=== PATIENT | female | born 1980 | race Caucasian/White ===

== ENCOUNTER → 2016-07-25 | Outpatient (CLI) | payer OTHER ==
[~2016-07-25] MED LIST: PRENTAB26 PO
[2016-07-25 18:14] LABS: GTGD 50 Grams
[2016-07-29 15:40] LABS: AFP CONCENTRATION 31.7 NG/ML; AFP MULTIPLE OF MEDIAN 1.03; AFPTS GESTATIONAL AGE 16.3 WEEKS; AFPTS INSULIN DEP DIABETIC? NO; AFPTS MATERNAL WT 172 LBS; ALPHA-FETOPROTEIN RACE CAUCASIAN=W; ESTRIOL MULTIPLE OF MEDIAN 1.05; HISTORY OF NTD NO; INHIBIN A 81 PG/ML; INHIBIN A MOM 0.51; REPEAT SAMPLE? NO; hCG MULTIPLE OF MEDIAN 0.93
== END | disposition home or self-care (01) ==
LOC: C.LAB1850 16:35
PROVIDERS: ATTEND Obstetrics & Gynecology
DX: Z34.00 Encounter for supervision of normal first pregnancy, unspecified trimester (principal)

== ENCOUNTER → 2016-10-21 | Outpatient (CLI) | payer OTHER ==
[2016-10-21 18:13] LABS: HEMATOCRIT 34.3 % (37-47)
[2016-10-21 18:37] LABS: URINE APPEARANCE CLOUDY (CLEAR); URINE BILIRUBIN NEG (NEG); URINE COLOR YELLOW; URINE EPITHELIAL CELL AUTO 20-30 /lpf (0-5); URINE NITRITE NEG (NEG); URINE PH 6.5 (4.5-7.5); URINE SPECIFIC GRAVITY 1.021 (1.000-1.030); UROBILINOGEN NEG (NEG)
[2016-10-21 18:49] LABS: MANUAL MICROSCOPIC REQUIRED? NO; REVIEW REQ? NO
[2016-10-21 19:12] LABS: GTGD 50 Grams
== END ==
LOC: C.LAB1850 16:35
PROVIDERS: ATTEND Obstetrics & Gynecology
DX: Z34.03 Encounter for supervision of normal first pregnancy, third trimester (principal)

== ENCOUNTER → 2016-10-26 | Outpatient (CLI) | payer OTHER | END | disposition home or self-care (01) | LOC: C.LAB 07:13 | PROVIDERS: ATTEND Obstetrics & Gynecology | DX: O28.1 Abnormal biochemical finding on antenatal screening of mother (principal); Z3A.00 Weeks of gestation of pregnancy not specified ==

== ENCOUNTER → 2016-12-11 | Outpatient (CLI) | payer OTHER | END | disposition home or self-care (01) | LOC: C.LABSPEC 18:10 | PROVIDERS: ATTEND Obstetrics & Gynecology | DX: Z34.03 Encounter for supervision of normal first pregnancy, third trimester (principal) ==

== ENCOUNTER 2017-01-07 00:25 | Inpatient (IN) | payer OTHER ==
[~2017-01-07] VITALS: Ht 170.2 cm; Wt 90.9 kg
[2017-01-14] MEDS ORDERED: LACTATED RINGER'S 1000ML 500 ML IV PRN ×2 (08:54→17:39)
[2017-01-14] MEDS ORDERED: LACTATED RINGER'S 1000ML 1,000 ML IV PRN (08:54)
[2017-01-14] MEDS ORDERED: OXYTOCIN 30 UNITS/500ML NSS IV PRN ×2 (09:00→22:45)
[2017-01-14 09:17] VITALS: Ht 170.2 cm; Wt 90.9 kg
[2017-01-14] MEDS ORDERED: PRENTAB26 PO ×2 (09:19)
[2017-01-14 09:32] LABS: MEAN CORPUSCULAR HEMOGLOBIN 30.9 pg (25-34); MEAN CORPUSCULAR HGB CONC 34.7 g/dl (32-36); MEAN PLATELET VOLUME 10.9 fL (7.4-10.4); PLATELET COUNT 158 K/uL (130-400); RED BLOOD COUNT 3.82 M/uL (4.2-5.4); WHITE BLOOD COUNT 7.91 K/uL (4.8-10.8)
[2017-01-14] MEDS: LACTATED RINGER'S 1000ML 1,000 ML IV SCH ×2 (09:35→17:10)
[2017-01-14] MEDS ORDERED: EpHEDrine SULFATE INJ 50 MG/ML AMP ONE (15:51)
[2017-01-14] MEDS ORDERED: BUPIVACAINE 0.25% 30 ML VIAL ONE (15:51)
[2017-01-14] MEDS ORDERED: FENTANYL 2MCG/ML ROPIV 1.25MG/ML 100ML BAG EPI ONE (15:51)
[2017-01-14] MEDS ORDERED: FENTANYL CITRATE INJ 50 MCG/1 ML 2 ML VIAL ONE (15:53)
[2017-01-14] MEDS ORDERED: NALOXONE HCL INJ 1 MG in SODIUM CHLORIDE 0.9% 1000ML 1,000 ML IV PRN (17:39)
[2017-01-14] MEDS ORDERED: NALOXONE HCL INJ 0.4 MG/1 ML VIAL/CARP IV PRN (17:45)
[2017-01-14] MEDS ORDERED: DiphenhydrAMINE HCL 50 MG/ML VIAL IV PRN (17:45)
[2017-01-14] MEDS ORDERED: EpHEDrine SULFATE INJ 50 MG/ML AMP IV PRN (17:45)
[2017-01-14] MEDS ORDERED: NALBUPHINE HCL INJ 10 MG/ML AMP IV PRN (17:45)
[2017-01-14] MEDS ORDERED: ONDANSETRON INJ 2 MG/ML 2 ML VIAL IV PRN (17:45)
[2017-01-14] MEDS ORDERED: FENTANYL 2MCG/ML ROPIV 1.25MG/ML 100ML BAG EPI PRN (17:45)
[2017-01-14] MEDS ORDERED: OXYTOCIN INJ 20 UNITS in LACTATED RINGER'S 1000ML 1,000 ML IV SCH (22:39)
--- NOTE | 2017-01-14 22:43 | Vaginal Delivery Summary ---
Vaginal Delivery Summary The patient dilated to complete and pushed to deliver a viable female infant Apgars 9 and 9 via over small second-degree perineal laceration. Mouth and nose bulb suctioned at the perineum. Shoulders and body delivered with ease. Infant vigorous and crying at . Cord clamped at 30 seconds of life and infant to maternal abdomen. Cord then doubly clamped and cut. Placenta delivered spontaneously and intact 3 vessel cord. Hemostasis achieved with dilute Pitocin and uterine massage. Bladder drained under sterile conditions for approximately 200 cc. Cervix and sulci intact. Laceration repaired in usual fashion using 3-0 Vicryl. Small hymenal tear on the right stitched with a figure -of-eight suture of 3-0 Vicryl for excellent hemostasis. EBL 300 cc's. Mother and baby stable in recovery.
[2017-01-14] MEDS ORDERED: HYDROCORTISONE ACETATE 25 MG SUPP PR PRN (22:45)
[2017-01-14] MEDS ORDERED: ACETAMINOPHEN 325 MG TAB PO PRN (22:45)
[2017-01-14] MEDS ORDERED: SUPERCREAM 0.870 % 15GM JAR EXT PRN (22:45)
[2017-01-14] MEDS ORDERED: LANOLIN OINT EXT PRN ×2 (22:45)
[2017-01-14] MEDS ORDERED: ACETAMINOPHEN/CODEINE 300/30MG TAB PO PRN ×2 (22:45)
[2017-01-14] MEDS ORDERED: BENZOCAINE 20% AER SPR 82.5 GM CAN EXT PRN (22:45)
[2017-01-14] MEDS ORDERED: DIPHTHERIA/TETANUS/PERTUSSIS 0.5 ML SYR/VIAL IM. ONE (22:45)
--- NOTE | 2017-01-14 23:19 | Anesthesia Procedure Note ---
Anesthesia Epidural Removal Nt Date & Time Jan 14, 2017 at 23:18 Vital Signs Pain Intensity: 0.0 Notes Mental Status: alert / awake / arousable, participated in evaluation Nausea / Vomiting: adequately controlled Pain: adequately controlled Airway Patency, RR, SpO2: stable & adequate BP & HR: stable & adequate Hydration State: stable & adequate Neuraxial Anesthesia: was administered, sensory block is resolving Anesthetic Complications: no major complications apparent, pt satisfied with anesthetic care Epidural: removed without complications, with tip intact
[2017-01-15] VITALS (7 sets, daily range): BP systolic 114–139; BP diastolic 70–87; PULSE 71–90; TEMP 36.6–37.3; O2SAT 96–97
--- NOTE | 2017-01-15 06:48 | OB/GYN Progress Note ---
CASHIER HOST/HOSTESS Progress Note Date of Service Jan 15, 2017. Subjective conversation w/ patient, physical exam, chart review, lab review Ambulation: limited ambulation (just to bathroom thus far) Voiding: no voiding problems Passing Gas: Yes (No BM yet) Diet Tolerance: Regular Diet Lochia: Small Feeding Type: Breast Feeding Pain: C/o low abd cramping and says vaginal tissue feels "swollen" Review of Systems Constitutional: No fever, No chills Respiratory: No cough, No shortness of breath Cardiac: No chest pain Abdomen: No nausea, No vomiting, No diarrhea Female : No dysuria Objective Vital Signs Date Time Temp Pulse Resp B/P (MAP) Pulse Ox O2 Delivery O2 Flow Rate FiO2 01/15/17 04:00 36.9 80 18 130/70 (90) Room Air 01/15/17 02:00 Room Air 01/15/17 02:00 36.8 81 18 139/78 (98) Room Air Physical Exam General Appearance: WELL-APPEARING, WD/WN, NO APPARENT DISTRESS Respiratory/Chest: lungs clear, normal breath sounds Cardiovascular: regular rate, rhythm Abdomen: normal bowel sounds, non tender, soft Fundus: Firm, Relation to Umbilicus (approx 1-2 down) Extremities: normal range of motion, non-tender, no pedal edema, no calf tenderness Laboratory Results Last 24 Hours Test 01/14/17 09:10 White Blood Count 7.91 K/uL Red Blood Count 3.82 M/uL Hemoglobin 11.8 g/dL Hematocrit 34.0 % Mean Corpuscular Volume 89.0 fL Mean Corpuscular Hemoglobin 30.9 pg Mean Corpuscular Hemoglobin Concent 34.7 g/dl RDW Standard Deviation 43.6 fL RDW Coefficient of Variation 13.5 % Platelet Count 158 K/uL Mean Platelet Volume 10.9 fL Assessment and Plan Post- Day Number: 1 Continue Routine Care: 36yo s/p vaginal delivery, now PPD #1. - Blood type O pos. GBS negative. Rubella immune. - Vital signs reviewed and stable. - Pain controlled, no use of PO meds yet. - No leg swelling or tenderness on calf palpation. Encourage ambulation. - Encourage breast feeding. - Hemoglobin 11.8. Pt states minimal vaginal bleeding. Continue to monitor clinically. - Continue routine post-vaginal delivery care. - Pt agreed with above plan, all current questions answered. Edy Langston MD, PGY1 Garbage Collector Supervisor Physician Supervision Note: I was present with Dr. Langston during the history and exam. I discussed the case with the resident and agree with the findings and plan as documented in the note. Any exceptions or clarifications are listed here: Doing well. Eating , voiding, ambulating. routine care. Documented By: Cira Jasmine Resident Tracking Resident Involvement: Resident Care Provided Care Provided: OB Delivery (morning rounds)
[2017-01-15] MEDS: DOCUSATE SODIUM 100 MG CAP PO SCH ×2 (08:43→19:28)
[2017-01-15] MEDS: IBUPROFEN 600 MG TAB PO PRN ×2 (09:28→19:37)
[2017-01-15] MEDS: PRENATAL VITAMIN TAB PO SCH (19:28)
[2017-01-16] MEDS: IBUPROFEN 600 MG TAB PO PRN (06:32)
--- NOTE | 2017-01-16 06:49 | OB/GYN Progress Note ---
MACHINIST CLASS B Progress Note Date of Service Jan 16, 2017. Subjective conversation w/ patient, physical exam, chart review, lab review Ambulation: limited ambulation (just in room) Voiding: no voiding problems Passing Gas: Yes (no BM yet) Diet Tolerance: Regular Diet Lochia: Small Feeding Type: Breast Feeding Pain: Minimal low pelvic discomfort Review of Systems Constitutional: No fever, No chills Respiratory: No cough, No shortness of breath Cardiac: No chest pain Abdomen: No nausea, No vomiting, No diarrhea Female : No dysuria Objective Vital Signs Date Time Temp Pulse Resp B/P (MAP) Pulse Ox O2 Delivery O2 Flow Rate FiO2 01/15/17 23:30 Room Air 01/15/17 23:30 36.6 71 16 124/81 (95) 97 Room Air 01/15/17 20:00 37.3 78 18 126/85 (99) Room Air 01/15/17 15:30 37.2 84 18 131/83 (99) 96 Room Air 01/15/17 15:30 Room Air 01/15/17 12:30 36.8 87 18 114/78 (90) Room Air 01/15/17 08:00 36.7 90 16 123/87 (99) Room Air 01/15/17 07:30 Room Air Physical Exam General Appearance: WELL-APPEARING, WD/WN, NO APPARENT DISTRESS Respiratory/Chest: lungs clear, normal breath sounds Cardiovascular: regular rate, rhythm Abdomen: normal bowel sounds, non tender, soft Fundus: Firm, Relation to Umbilicus (approx two down) Extremities: normal range of motion, non-tender, no pedal edema, no calf tenderness Assessment and Plan Post- Day Number: 2 Continue Routine Care: 36yo s/p vaginal delivery, now PPD #2. - Blood type O pos. GBS negative. Rubella immune. - Vital signs reviewed and stable. - Pain controlled with ibuprofen. - No leg swelling or tenderness on calf palpation. Encourage ambulation. - Encourage breast feeding. - Hemoglobin 11.8. Continue to monitor clinically. - Recd sitz baths for vaginal regional tissue swelling. Pt says it's improved since yesterday. - Continue routine post-vaginal delivery care. - Pt agreed with above plan, all current questions answered. Edy Langston MD, PGY1 Talent Assistant Physician Supervision Note: I interviewed and examined the patient. Discussed with Dr. Langston and agree with findings and plan as documented in the note. Any exceptions or clarifications are listed here: [None] Documented By: Colton Reis Resident Tracking Resident Involvement: Resident Care Provided Care Provided: OB Delivery (morning rounds)
--- NOTE | 2017-01-16 07:01 | Discharge Instructions ---
Discharge Instructions Date of Service Jan 16, 2017. Admission Reason for Admission: Induction Discharge Discharge Diagnosis / Problem: Recovery after vaginal delivery Discharge Goals Goal(s): Routine recovery after delivery Activity Recommendations Activity Limitations: per Instructions/Follow-up section . Instructions / Follow-Up Instructions / Follow-Up ACTIVITY RECOMMENDATIONS: * Gradual return to full activity over the next 2-3 weeks. * No lifting - nothing heavier than baby over the next 2-3 weeks. * Do not engage in vigorous exercise, sexual activity or sports until cleared by your physician. * Do not drive or operate any motorized equipment until cleared by your physician. * You may shower/bathe daily. MEDICATIONS: For discomfort or pain, you may use Acetaminophen (Tylenol), Ibuprofen (Advil), or Naproxen (Aleve) following the package directions. For constipation you may use Colace following the package directions. BREAST CARE: If you are not breast feeding: * Wear a supportive bra 24 hours a day for one to two weeks. * Avoid stimulating your breasts and nipples as much as possible during the first few weeks after delivery. * When taking a shower, have the warm water hit your back, not breasts. * When your breasts feel full, apply ice packs. Usually three to four times a day helps ease the discomfort. * Take a mild pain medication (Tylenol / Motrin) when you are uncomfortable. If breast feeding: * Use breast milk to lubricate nipples. Lansinoh cream may be used for sore nipples. You do not need to remove cream prior to breast feeding. If using a different brand of cream, check the label for directions regarding removal of cream prior to nursing. * Wear a supportive bra. * If having problems with breasts or breast feeding, call a database consultant or your health care provider. EPISIOTOMY CARE: After delivery, if you have an episiotomy (stitches), the following steps will ease discomfort and aid healing. * For the first 24 hours after delivery, place ice packs next to your episiotomy to help reduce swelling. * After the first 24 hour-period, sitz baths, either portable or in the tub, are suggested. A shower with a shower arm sprayed over the episiotomy may be comforting. * Connie care should be done after each voiding and bowel movement. Squirt warm water from a plastic bottle over the perineum (region of the body between the anus and urinary opening) and pat dry. * Use Dermoplast to ease discomfort. Shake container. [place] directly over the episiotomy. Place a Tucks on a clean sanitary pad next to your episiotomy. SPECIAL CARE INSTRUCTIONS: When you are discharged from the hospital, it is important for you to follow the instructions listed below: * During the first week at home, you should be able to care for yourself and your baby. In addition, the usual light household activities are encouraged. * Limit your activities to the way you feel. Do not try to clean the house or move furniture. Be sensible. * If you actively engage in sports and have done so up until the time of your delivery, you may resume these activities as soon as you feel able. This may take up to one month or even longer. Use good judgment. * Continue to take your vitamins for at least six weeks after the of your baby. * Your diet need not be limited unless you were on a special diet before your delivery. Breast-feeding mothers need around 2500 calories per day and at least 64-80 ounces of fluid per day (8 to 10 glasses). * You should eat foods from the four major food groups. Crash diets or fad diets are to be avoided. Eating lean meats, fresh fruits and vegetables, low-fat dairy products, high fiber foods and a regular exercise program, will help you get back to your pre- weight without putting your health at risk. * Constipation is sometimes a problem after delivery. Take a mild laxative as needed. If breast feeding, Milk of Magnesia is acceptable to use. You may use a suppository or Fleets enema if no episiotomy. * A daily shower or tub bath is suggested. Be sure to thoroughly and gently dry the perineum. * A bloody vaginal discharge will usually continue until around four weeks post . A small amount of bleeding may continue for as long as six weeks. Vaginal discharge changes from the bright red bleeding after delivery to pink then brownish and finally yellowish-pink before becoming white and disappearing. * Bleeding may increase with activity. Your first period may come in 4-8 weeks. If you are breast feeding, your period may be delayed even longer. * [place] (sex) can begin whenever both you and your partner feel comfortable and do not have any form of genital infection. It is recommended that you wait at least six weeks for internal and external healing to occur. If you have questions, please talk to your health care practitioner. A condom should be used to prevent infection and . * Foreplay, gentle intercourse and lubrication is very important the first several times to prevent pain. A water-based lubricant such as K-Y jelly or Astroglide may be used. * If you have RH negative blood and your baby is RH positive, you will receive RHOGAM by injection prior to discharge. The nurse will give you a card to keep with you that has the date and place that you received RHOGAM after delivery. * During your care, you had a Rubella screen done to check for the presence of rubella antibodies in your blood. If your test was negative, you will receive a Rubella vaccine prior to discharge. This vaccine may cause a fever, soreness at the injection site and flu-like symptoms. If these symptoms persist, notify your health care practitioner. is not advised for one month after a Rubella vaccine. * Verbalizes understanding of car seat law as reviewed with patient nursing. * Car Seat hand-out given and reviewed with patient by nursing. * Shaken baby information reviewed with patient by nursing. Call you doctor if: * Heavy bleeding (saturating several pads an hour) or passing clots the size of your fist. * A fever >101 degrees F (38.3 degrees C) on two occasions four hours apart and /or chills. * Unusual pain in the pelvic or vaginal areas. * "Baby Blues" lasting longer than two weeks. If you have any questions or concerns, call your health care practitioner at . FOLLOW UP VISIT: * Please call the office at to schedule a 6 week examination. It is important you keep this appointment. It is important for you to make arrangements for either yearly or twice yearly check-ups thereafter. Current Hospital Diet Patient's current hospital diet: Regular OB Diet Discharge Diet Recommended Diet: Regular OB Diet Pending Studies Studies pending at discharge: no Medical Emergencies . Who to Call and When: Medical Emergencies: If at any time you feel your situation is an emergency, please call 911 immediately. . Non-Emergent Contact Non-Emergency issues call your: Managing Consultant Clinical Professor . . "Provider Documentation" section prepared by Edy Langston. . VTE Core Measure Inpt VTE Proph given/why not?: Treatment not indicated
[2017-01-16 07:13] VITALS: BP 128/87; PULSE 66; TEMP 36.6; O2SAT 98
[2017-01-16] MEDS: DOCUSATE SODIUM 100 MG CAP PO SCH (08:13)
[2017-01-16] MEDS: PRENATAL VITAMIN TAB PO SCH (08:13)
[2017-01-16 13:52] VITALS: BP_DIAS 87; PULSE 66; TEMP 36.6
== END 2017-01-16 14:02 | disposition home or self-care (01) | DRG 775 ==
LOC: C.LD 01-14 07:46 → C.OBG 01-15 01:31
PROVIDERS: ADMIT Obstetrics & Gynecology; ATTEND Obstetrics & Gynecology
PROC: 3E033VJ Introduction of Other Hormone into Peripheral Vein, Percutaneous Approach (ICD-10-PCS; principal; 2017-01-14)
PROC: 0KQM0ZZ Repair Perineum Muscle, Open Approach (ICD-10-PCS; principal; 2017-01-14)
PROC: 10E0XZZ Delivery of Products of Conception, External Approach (ICD-10-PCS; principal; 2017-01-14)
DX: O48.0 Post-term pregnancy (principal); O70.1 Second degree perineal laceration during delivery; Z3A.41 41 weeks gestation of pregnancy; Z37.0 Single live birth

== ENCOUNTER 2017-01-13 16:11 | Outpatient (CLI) | payer OTHER ==
[~2017-01-13] VITALS: Ht 170.2 cm; Wt 91.0 kg
[2017-01-13 19:05] VITALS: Ht 170.2 cm; Wt 91.0 kg
[2017-01-14] MEDS ORDERED: PRENTAB26 PO ×2 (09:19)
== END 2017-01-13 19:38 | disposition home or self-care (01) ==
LOC: C.OPB 16:11 → C.LD 16:12 → C.OPB 19:38
PROVIDERS: ATTEND Obstetrics & Gynecology
DX: O48.0 Post-term pregnancy (principal); O26.893 Other specified pregnancy related conditions, third trimester; N89.8 Other specified noninflammatory disorders of vagina; Z3A.40 40 weeks gestation of pregnancy

== ENCOUNTER → 2017-02-20 | Outpatient (CLI) | payer OTHER | END | disposition home or self-care (01) | LOC: C.PAPS 09:49 | PROVIDERS: ATTEND Obstetrics & Gynecology | DX: Z12.4 Encounter for screening for malignant neoplasm of cervix (principal) ==

== ENCOUNTER 2017-04-07 23:17 | Emergency (ER) | payer OTHER ==
[~2017-04-07] VITALS: Ht 170.2 cm; Wt 74.8 kg
[2017-04-07 23:24] VITALS: TEMP 36.8; Ht 170.2 cm; Wt 74.8 kg
--- NOTE | 2017-04-07 23:53 | EMERGENCY ROOM VISIT NOTE ---
History Report prepared by Royer: Sharan Perdomo Under the Supervision of: Dr. Christina Leahy M.D. First contact with patient: 23:32 Chief Complaint: VAGINAL DISCHARGE Stated Complaint: VAGINAL S/S History of Present Illness The patient is a 36 year old female who presents to the Emergency Room with complaints of worsening vaginal discomfort beginning a few days ago. The patient states "I think my uterus is prolapsed." She reports she had a vaginal delivery around 3 months ago, and her baby was 8lbs 9oz. The patient notes since then, it intermittently feels like a tampon that has fallen out a little. She states she did not look 'down there' until this evening because she was scared. The patient reports her vagina did not look normal, and she thought it was from her uterus. She denies soreness to the area. The patient notes two weeks ago, she had a bowel movement and had bright red blood upon wiping. She states she thought it was her menstrual cycle, but her she did not have vaginal bleeding after further cleaning. The patient reports she has another bowel movement that produced little body and a third that produced nothing. She notes she called her PCP and was told to go to the ED if it lasted longer than a week. Source of History: patient Onset: few days ago Position: other (vagina) Quality: other (discomfort) Timing: worsening Note: Associated symptoms: intermittent blood in stool Denies: soreness to the vagina Review of Systems See HPI for pertinent positives & negatives. A total of 6 systems reviewed and were otherwise negative. Past Medical & Surgical Medical Problems: (1) Post term (2) Vaginal discharge during in third trimester Family History Patient reports no known family medical history. Social History Smoking Status: Never Smoker Marital Status: Housing Status: lives with family Current/Historical Medications No Active Prescriptions or Reported Meds Allergies Coded Allergies: No Known Allergies (Unverified , 04/08/17) Physical Exam Vital Signs Date Time Temp Pulse Resp B/P (MAP) Pulse Ox O2 Delivery O2 Flow Rate FiO2 04/08/17 00:39 80 18 125/82 99 04/07/17 23:24 36.8 88 18 127/91 100 Room Air Physical Exam Vital signs reviewed. General: Well-appearing 36 year old female, in no significant distress. Abdomen: Soft, nontender, nondistended, positive bowel sounds. Pelvic: Normal external female genitalia, no lesions, cervix is closed, scant amount of clear discharge, no evidence of prolapse, no cervical motion tenderness. Musculoskeletal: Atraumatic, no peripheral edema. Neurologic: Patient awake alert and oriented x 3 Skin: Warm, dry, no rash Medical Decision & Procedures ED Course 2339: Past medical records reviewed. The patient was evaluated in room B02. A complete history and physical examination was performed. 0049: Upon reevaluation, the patient appeared to have improvement of her symptoms. I discussed findings with her. She verbalized agreement of the treatment plan. The patient was discharged home. Medical Decision The patient is a 36 year old female who presents to the ED with complaints of vaginal discomfort. Differentials include rectal prolapse, uterine prolapse, infection, UTI, foreign body. This patient was evaluated and appeared to be in no significant distress. Physical examination is unrevealing. Pelvic exam is normal. There is no evidence of uterine prolapse at this time. The patient was instructed to follow -up with [facility] this week for reevaluation if symptoms persist. She will return to the ER for worsening of symptoms or any medical concerns. Impression Primary Impression: Normal pelvic exam Scribe Attestation The scribe's documentation has been prepared under my direction and personally reviewed by me in its entirety. I confirm that the note above accurately reflects all work, treatment, procedures, and medical decision making performed by me. Departure Information Dispostion Home / Self-Care Prescriptions No Active Prescriptions or Reported Meds Referrals Ramon Borrero M.D. (PCP) Forms HOME CARE DOCUMENTATION FORM, IMPORTANT VISIT INFORMATION, WORK / SCHOOL INSTRUCTIONS Patient Instructions My [facility] Additional Instructions Diagnosis: Pelvic exam Follow up with OBGYN this week for reevaluation. Return to the ED for worsening of symptoms or any medical concerns.
[2017-04-08 00:39] VITALS: BP 125/82; PULSE 80; O2SAT 99
== END 2017-04-08 00:40 | disposition home or self-care (01) ==
LOC: C.EDB 23:18
DX: Z03.89 Encounter for observation for other suspected diseases and conditions ruled out (principal)

== ENCOUNTER → 2017-04-22 | Outpatient (CLI) | payer OTHER ==
[2017-04-22 16:55] LABS: BASO % 0.2 %; BASO ABS # 0.02 K/uL (0-0.2); COMPLETE YES; EOS % 0.6 %; HEMATOCRIT 40.8 % (37-47); LYMPH % 20.5 %; LYMPH ABS # 1.78 K/uL (1.2-3.4); MEAN CELL VOLUME 86.6 fL (80-100); MEAN CORPUSCULAR HEMOGLOBIN 29.9 pg (25-34); MEAN CORPUSCULAR HGB CONC 34.6 g/dl (32-36); MEAN PLATELET VOLUME 11.3 fL (7.4-10.4); MONO % 9.9 %; NEUT % 68.8 %; PLATELET COUNT 243 K/uL (130-400); RED BLOOD COUNT 4.71 M/uL (4.2-5.4); WHITE BLOOD COUNT 8.68 K/uL (4.8-10.8)
== END | disposition home or self-care (01) ==
LOC: C.LABBC 14:46
PROVIDERS: ATTEND Physician Assistant Medical
DX: R10.31 Right lower quadrant pain (principal)